=== PATIENT | female | born 1980 | race Caucasian/White ===

== ENCOUNTER → 2018-08-13 | Outpatient (CLI) | payer BC | LOC: HYPER 08-08 11:29 | DX: E11.622 Type 2 diabetes mellitus with other skin ulcer (principal); I70.248 Atherosclerosis of native arteries of left leg with ulceration of other part of lower leg; L97.821 Non-pressure chronic ulcer of other part of left lower leg limited to breakdown of skin; E11.51 Type 2 diabetes mellitus with diabetic peripheral angiopathy without gangrene; N63.22 Unspecified lump in the left breast, upper inner quadrant; Z87.891 Personal history of nicotine dependence; Z95.5 Presence of coronary angioplasty implant and graft ==

== ENCOUNTER → 2018-08-20 | Outpatient (CLI) | payer BC | LOC: HYPER 07:19 | DX: I70.248 Atherosclerosis of native arteries of left leg with ulceration of other part of lower leg (principal); L97.821 Non-pressure chronic ulcer of other part of left lower leg limited to breakdown of skin; T63.301D Toxic effect of unspecified spider venom, accidental (unintentional), subsequent encounter; N63.22 Unspecified lump in the left breast, upper inner quadrant; Z53.1 Procedure and treatment not carried out because of patient's decision for reasons of belief and group pressure; Z87.891 Personal history of nicotine dependence ==

== ENCOUNTER → 2018-09-03 | Outpatient (CLI) | payer BC | LOC: HYPER 07:06 | DX: I70.248 Atherosclerosis of native arteries of left leg with ulceration of other part of lower leg (principal); L97.821 Non-pressure chronic ulcer of other part of left lower leg limited to breakdown of skin; N63.22 Unspecified lump in the left breast, upper inner quadrant; Z87.891 Personal history of nicotine dependence; Z53.1 Procedure and treatment not carried out because of patient's decision for reasons of belief and group pressure ==

== ENCOUNTER → 2018-09-20 | Outpatient (CLI) | payer OTHER | LOC: CAT 10:39 | DX: Z13.6 Encounter for screening for cardiovascular disorders (principal); E78.00 Pure hypercholesterolemia, unspecified; I25.10 Atherosclerotic heart disease of native coronary artery without angina pectoris ==

== ENCOUNTER → 2018-09-26 | Outpatient (CLI) | payer BC | LOC: HYPER 06:54 | DX: I70.248 Atherosclerosis of native arteries of left leg with ulceration of other part of lower leg (principal); L97.821 Non-pressure chronic ulcer of other part of left lower leg limited to breakdown of skin; T63.391D Toxic effect of venom of other spider, accidental (unintentional), subsequent encounter; N63.22 Unspecified lump in the left breast, upper inner quadrant; Z87.891 Personal history of nicotine dependence ==

== ENCOUNTER → 2018-10-10 | Outpatient (CLI) | payer BC | LOC: HYPER 06:37 | DX: I70.248 Atherosclerosis of native arteries of left leg with ulceration of other part of lower leg (principal); L97.821 Non-pressure chronic ulcer of other part of left lower leg limited to breakdown of skin; T63.301D Toxic effect of unspecified spider venom, accidental (unintentional), subsequent encounter; N63.22 Unspecified lump in the left breast, upper inner quadrant; L03.116 Cellulitis of left lower limb; Z87.891 Personal history of nicotine dependence; Z53.1 Procedure and treatment not carried out because of patient's decision for reasons of belief and group pressure ==

== ENCOUNTER → 2018-10-24 | Outpatient (CLI) | payer BC | LOC: HYPER 07:03 | DX: I70.248 Atherosclerosis of native arteries of left leg with ulceration of other part of lower leg (principal); L97.822 Non-pressure chronic ulcer of other part of left lower leg with fat layer exposed; N63.22 Unspecified lump in the left breast, upper inner quadrant; Z53.1 Procedure and treatment not carried out because of patient's decision for reasons of belief and group pressure; Z87.891 Personal history of nicotine dependence ==

== ENCOUNTER → 2018-11-07 | Outpatient (CLI) | payer BC | LOC: HYPER 06:45 | DX: T63.301D Toxic effect of unspecified spider venom, accidental (unintentional), subsequent encounter (principal); S81.802D Unspecified open wound, left lower leg, subsequent encounter; I73.9 Peripheral vascular disease, unspecified; N63.22 Unspecified lump in the left breast, upper inner quadrant; L03.116 Cellulitis of left lower limb; Z87.891 Personal history of nicotine dependence; Z53.1 Procedure and treatment not carried out because of patient's decision for reasons of belief and group pressure; X58.XXXD Exposure to other specified factors, subsequent encounter ==

== ENCOUNTER → 2018-11-21 | Outpatient (CLI) | payer BC | LOC: HYPER 06:51 | DX: I70.248 Atherosclerosis of native arteries of left leg with ulceration of other part of lower leg (principal); L97.822 Non-pressure chronic ulcer of other part of left lower leg with fat layer exposed; T63.301D Toxic effect of unspecified spider venom, accidental (unintentional), subsequent encounter; N63.22 Unspecified lump in the left breast, upper inner quadrant; Z53.1 Procedure and treatment not carried out because of patient's decision for reasons of belief and group pressure; Z87.891 Personal history of nicotine dependence ==

== ENCOUNTER → 2018-12-05 | Outpatient (CLI) | payer BC | LOC: HYPER 06:48 | DX: I70.248 Atherosclerosis of native arteries of left leg with ulceration of other part of lower leg (principal); L97.822 Non-pressure chronic ulcer of other part of left lower leg with fat layer exposed; T63.301D Toxic effect of unspecified spider venom, accidental (unintentional), subsequent encounter; N63.22 Unspecified lump in the left breast, upper inner quadrant; Z53.1 Procedure and treatment not carried out because of patient's decision for reasons of belief and group pressure; Z87.891 Personal history of nicotine dependence ==

== ENCOUNTER → 2020-01-15 | Outpatient (CLI) | payer BC | LOC: SJCVCIMAG 08:51 | PROVIDERS: ATTEND Internal Medicine Cardiovascular Disease | DX: I73.9 Peripheral vascular disease, unspecified (principal); E78.00 Pure hypercholesterolemia, unspecified; Z87.891 Personal history of nicotine dependence ==

== ENCOUNTER → 2020-10-14 | Outpatient (CLI) | payer BC | LOC: SJCVCIMAG 08:21 | PROVIDERS: ATTEND Internal Medicine Cardiovascular Disease | DX: I70.203 Unspecified atherosclerosis of native arteries of extremities, bilateral legs (principal); E78.00 Pure hypercholesterolemia, unspecified; M79.604 Pain in right leg; M79.605 Pain in left leg; I77.1 Stricture of artery; Z87.891 Personal history of nicotine dependence ==